=== PATIENT | male | born 1950 | race Caucasian/White ===

== ENCOUNTER 2017-04-30 20:00 | Emergency (ER) | payer MEDICAID ==
[~2017-04-30 20:00] MED LIST: ADVIL200 M1 PO; ALPRAZOLAM0.5 M2 PO; ANTIBIOTIC EYE; ASPIRIN325 MG PO; ATIVAN1 M2 PO; AUGMENTIN 875-11 TAB PO; AZOPT10 ML EACH EYE; B COMPLETE1 EACH PO; BACTRIM 400-801 TAB; BACTRIM DS TABL1 TAB; BACTRIM DS1 TA1 PO; BENTYL20 M1 PO; BISOPROLOL FUMAR5 M1 PO; CELLCEPT500 MG PO; CHANTIX1 MG PO; COMBIGAN EYE DRO5 M1 EACH EYE; COMBIGAN EYE DRO5 M1 RIGHT EYE; COSOPT EYE DROP10 ML EACH EYE; DIABETA5 MG; DIAMOX SEQUELS500 M1 PO; DICLOFENAC SOD150 ML RIGHT EYE; DUO TP; DUREZOL5 M1 EACH EYE; EYE; FOSINOPRIL SODI40 MG PO; GLIPIZIDE10 M2 PO; GLIPIZIDE10 MG PO; GLUCOPHAGE1000 M1 PO; GLUCOPHAGE1000 MG PO; GLUCOPHAGE500 M1 PO; GLUCOPHAGE500 MG PO; GLUCOPHAGE500 MG/TA2 PO; GLUCOVANCE 5/501 TAB; HYDROCHLOROTHIA25 M1 PO; HYDROCHLOROTHIA25 MG PO; HYDROCODON-ACE1 EAC7 PO; IBUPROFEN200 M1 PO; IBUPROFEN800 MG; IRON 100 PLUS1 EACH PO; KEFLEX250 M2 PO; KEFLEX500 M1 PO; KEFLEX500 M2 PO; LEVOTHYROXINE100 MC1 PO; LEVOTHYROXINE125 MCG PO; LEVOTHYROXINE150 MCG PO; LEXAPRO10 M2 PO; LISINOPRIL40 M1 PO; LUMIGAN2.5 M2 EACH EYE; MEN 50 PLUS MU1 EACH PO; METAMUCIL PACK3.4 G1 PO; METAMUCIL1 PKT PO; METFORMIN HCL500 M3 PO; METOPROLOL SUCC50 M1 PO; MILK OF MAGNESIA PO; MONOPRIL HCT 201 TAB; NEXIUM40 MG PO; OMEPRAZOLE20 MG PO; OMEPRAZOLE40 M2 PO; ONDANSETRON ODT4 MG PO; OZURDEX0.7 MG IO; PRAVACHOL20 M1 PO; PRAVACHOL20 MG PO; PRAVACHOL40 M1 PO; PREDNISOLONE EYE OP; PREDNISONE10 MG PO; PREDNISONE20 M1 PO; PREDNISONE5 MG PO; TOPROL XL25 M1 PO; TRAMADOL HCL50 M2 PO; TYLENOL325 M1 PO; VITAMIN A10000 UNIT; VITAMIN C WIT1000 M3 PO; VITAMIN D-32000 UNI3 PO; XANAX1 M1 PO; ZANAFLEX4 M1 PO; ZOFRAN ODT4 MG PO; ZOFRAN ODT4 MG/UDTAB PO; [UNRECOGNIZED DRUG - OTHER]
[2017-04-30] MEDS ORDERED: IBUPROFEN200 M2 PO (20:21)
[2017-04-30] MEDS ORDERED: AUGMENTIN 875-1 EAC2 PO (21:15)
[2017-05-24] MEDS ORDERED: AUGMENTIN 875-1 EAC2 PO (09:59)
[2017-06-24] MEDS ORDERED: IBUPROFEN200 M2 PO (11:39)
[2017-06-24] MEDS ORDERED: GLUCOTROL XL10 M1 PO (11:44)
[2017-06-24] MEDS ORDERED: CIPRO500 M2 PO (11:45)
[2017-06-24] MEDS ORDERED: ALPHAGAN P5 M1 LEFT EYE (11:46)
[2017-06-24] MEDS ORDERED: HYDROCODON-ACE1 EA16 PO (11:47)
[2017-06-24] MEDS ORDERED: SANTYL30 G1 TP (11:48)
== END 2017-04-30 21:35 ==
LOC: EDMED 20:00
DX: L03.114 Cellulitis of left upper limb (principal); E11.9 Type 2 diabetes mellitus without complications; I10 Essential (primary) hypertension; F41.9 Anxiety disorder, unspecified; Z88.1 Allergy status to other antibiotic agents; F17.200 Nicotine dependence, unspecified, uncomplicated